=== PATIENT | male | born 1965 | race Caucasian/White ===

== ENCOUNTER 2025-03-02 08:26 | Outpatient (CLI) | payer OTHER, SELFPAY | END 2025-03-02 08:27 | disposition home or self-care (01) | PROVIDERS: Visit Provider Family Medicine | DX: R06.09 Other forms of dyspnea (principal); R07.89 Other chest pain | CPT/HCPCS: A0425; A0427 ==

== ENCOUNTER 2025-03-02 09:03 | Emergency (ER) | payer OTHER, SELFPAY ==
[2025-03-02 09:07] VITALS: BP 97/63; PULSE 73; RESP 24; TEMP 36.5; O2SAT 100; BMI 22.3
--- NOTE | 2025-03-02 09:10 | CRLHL7_ITS ---
For Patients: As a result of the Cures Act, medical imaging exams and procedure reports are released immediately into your electronic medical record. You may view this report before your referring provider. If you have questions, please contact your health care provider. INDICATION: Chest pain, not otherwise described. COMPARISON: Prior studies, the most recent dated 12/05/2018. TECHNIQUE: Single AP view of the chest. FINDINGS: Medical Devices: None. Lung Volumes: Adequate inspiration. No significant atelectasis. Lungs: Clear lungs. Pleura and Pleural spaces: No significant pleural effusion. No pneumothorax. Mediastinum: Normal cardiomediastinal silhouette. Bony Thorax and Soft Tissues: No significant incidental findings. IMPRESSION: No findings to explain the clinical history. Dictated by North Padilla MD @ 03/02/2025 9:46:07 AM (Electronically Signed)
--- NOTE | 2025-03-02 09:13 | ED.GENADULT ---
HPI - General Adult General Chief complaint: Shortness of Breath/Dyspnea Stated complaint: chest pain, shortness of breath Time Seen by Provider: 03/02/25 09:05 History of Present Illness HPI narrative: [age] year white male was out riding about 7 miles on his bike this morning and got short of breath and had some mild chest discomfort. He felt like he was dizzy, ambulance was called. His most complaint was shortness of breath. He reports he has been under good amount of stress lately as well. He has had no history of heart disease although he has a calcium coronary score in the 20s by his report. He has had no lung disease. No history of bleeding or clotting problems no history of cardiac disease, he is on a statin. Does report some stress recently, does report fluid intake but maybe not enough. He has had no fever, chills, cough, chest pain on a regular basis. He typically rides bike regularly. He denies chest pain now, still feels like he is gasping a little bit for breath. This seems to come and go he is able to talk in full and unlabored sentences. Related Data Home Medications ?Medication ?Instructions ?Recorded ?Confirmed azelastine 137 mcg (0.1 %) nasal intranasal 07/11/23 07/11/23 spray cyclobenzaprine 5 mg tablet 5 mg PO 3XD PRN 07/11/23 07/11/23 fluticasone propionate 50 intranasal 07/11/23 07/11/23 mcg/actuation nasal spray,suspension hydroxyzine HCl 25 mg tablet 25 mg PO BID 07/11/23 07/11/23 mirtazapine 15 mg tablet 15 mg PO QPM 07/11/23 03/02/25 rosuvastatin 5 mg tablet 5 mg PO DAILY 07/11/23 03/02/25 Allergies Allergy/AdvReac Type Severity Reaction Status Date / Time oxycodone Allergy Unknown Verified 07/11/23 14:17 Review of Systems Status of ROS: Reports: 6 or more systems reviewed and unremarkable except as noted in History and below Exam Narrative: Exam Narrative: Objective: Vital signs look within normal limits Alert orient x3 Mildly pale and dry mucous membranes in the mouth Low no facial asymmetry Neck is supple Chest clear Heart rhythm regular heart murmur No palpable chest wall pain Abdomen benign soft Extremities are no edema neurologic nonfocal. Patient has pants on and they are drenched in wet material, either sweat or water. Const: Vital Signs, click to edit/add: Vital Signs - 24 hr 03/02/25 09:07 Temperature 97.7 F Pulse Rate [Pulse Oximeter] 73 Respiratory Rate 24 Blood Pressure [Le ft Upper Arm] 97/63 Pulse Oximetry 100 Oxygen Delivery Me thod Room Air Course Vital Signs Vital signs: Initial Vital Signs Temperature 97.7 F 03/02/25 09:07 Temperature Source Temporal Artery Scan 03/02/25 09:07 Pulse Rate 73 03/02/25 09:07 Respiratory Rate 24 03/02/25 09:07 Blood Pressure 97/63 03/02/25 09:07 Blood Pressure Mean 74 03/02/25 09:07 Blood Pressure Position Supine 03/02/25 09:07 Pulse Oximetry 100 03/02/25 09:07 Oxygen Delivery Method Room Air 03/02/25 09:07 Vital Signs Temperature 97.7 F 03/02/25 09:07 Pulse Rate 73 03/02/25 09:07 Respiratory Rate 24 03/02/25 09:07 Blood Pressure 97/63 03/02/25 09:07 Pulse Oximetry 100 03/02/25 09:07 Oxygen Delivery Method Room Air 03/02/25 09:07 Temperature 97.7 F 03/02/25 09:07 Pulse Rate 73 03/02/25 09:07 Respiratory Rate 24 03/02/25 09:07 Blood Pressure 97/63 03/02/25 09:07 Pulse Oximetry 100 03/02/25 09:07 Oxygen Delivery Method Room Air 03/02/25 09:07 Medications Administered Medications: Discontinued Medications Generic Name Dose Route Start Last Admin Trade Name Freq PRN Reason Stop Dose Admin Aspirin 324 mg 03/02/25 09:09 03/02/25 09:46 Aspirin 81 Mg Tab.Chew PO 03/02/25 09:10 Not Given ONCE ONE Sodium Chloride 1,000 mls @ 6,000 mls/hr 03/02/25 09:15 03/02/25 10:23 0.9 % Sodium Chloride 1000 Ml IV 03/02/25 09:24 Infused .Q10M KAYLIN Infusion Sodium Chloride 500 mls @ 500 mls/hr 03/02/25 10:06 03/02/25 11:20 0.9 % Sodium Chloride 500 Ml IV 03/02/25 11:05 Infused .Q1H ONE Infusion Lorazepam 1 mg 03/02/25 09:25 03/02/25 09:34 Lorazepam 2 Mg/Ml Inj IVP 03/02/25 09:26 1 mg ONCE ONE Administration Medical Decision Making MDM Narrative Medical decision making narrative: [age] year white male out for a bike ride on a very hot day, with feelings of shortness of breath mild chest discomfort. He feels her dry. I suspect he has got an element of heat exhaustion and dehydration. Will rule out coronary disease, check his labs check a chest x-ray to rule out intrapulmonary pathology. Will check a troponin, put him on a threat monitoring analyst and oximeter. Given aspirin, give a L saline. Disposition pending findings and his clinical response. Addendum 11:40 a.m.: The patient's chest x-ray by my read is unremarkable. His EKG shows normal sinus rhythm no acute ST T wave changes, his troponin x2 at least 90 minutes apart is negative. His white count is normal, hemoglobin 13.6 and normal. ER profile shows normal potassium sodium. His lactate was elevated but I think it was from dehydration. I do not believe he constitutes sepsis. He simply was dry and has gotten a L and half of saline. Re-evaluation shows his color to be better he is hemodynamics are good he has had no arrhythmia. Amylase is borderline elevated 112. Recommend continue his home medications, rest, light activity, fluids regularly today, stay out of the heat today, recheck with regular doctor as needed to discuss further management. At this point I suspect he had a dehydration episode or heat exhaustion episode and has feels better now will long to go home and again followed up mention restrictions. Lab Data Labs: Lab Results 03/02/25 03/02/25 Range/Units 09: 11:24 WBC 4.40 L (4.50-11.00) K/uL RBC 4.39 (4.30-5.90) m/uL Hgb 13.6 (13.5-17.5) gm/dL Hct 40.2 (37.0-53.0) % MCV 92 (80-100) fL MCH 31 (26-34) pg MCHC 34 (32-36) gm/dL RDW Coeff of Sd 11.7 (11.5-15.5) % Plt Count 177 (140-440) K/uL Neut % (Auto) 68.9 (42.0-72.0) % Lymph % (Auto) 17.3 L (20-44) % Gentry % (Auto) 12.3 H (0.0-11.0) % Eos % (Auto) 1.1 (0.0-7.0) % Baso % (Auto) 0.2 (0.0-3.0) % Neut # (Auto) 3.00 (1.7-7.0) K/uL Lymph # (Auto) 0.80 L (0.90-2.90) K/uL Gentry # (Auto) 0.50 (0.00-0.90) K/UL Eos # (Auto) 0.00 (0.00-0.50) K/uL Baso # (Auto) 0.00 (0.00-0.30) K/uL Abs Immat Gran (auto) 0.00 (0.00-0.30) K/uL Imm/Tot Granulo (auto) 0.2 % D-Dimer Quant (PE/DVT) < 0.27 (0.00-0.50) ug/ml Sodium 136 (135-149) mmol/L Potassium 4.0 (3.6-5.1) mmol/L Chloride 105 (96-114) mmol/L Carbon Dioxide 21 (20-32) mmol/L Anion Gap 10 (7-15) mEq/L BUN 17 (7-30) mg/dL Creatinine 0.9 (0.5-1.5) mg/dL Estimated Creat Clear 59.91 Estimated GFR 97 ml/min Glucose 76 (60-115) mg/dL Lactate 3.9 H (0.5-1.9) mmol/L Calcium 9.0 (8.4-10.6) mg/dL Total Bilirubin 1.0 (0.1-1.5) mg/dL Direct Bilirubin 0.0 (0.0-0.5) mg/dL AST 39 H (12-35) U/L ALT 27 (4-50) U/L Alkaline Phosphatase 41 (40-150) U/L C-Reactive Protein < 0.5 L (0.5-1.0) mg/dL NT-Pro-B Natriuret Pep 83 (See Note) pg/mL Total Protein 6.6 (6.0-8.3) g/dL Albumin 4.1 (3.3-5.0) g/dL Amylase 112 H (18-89) U/L POC Troponin I 0.00 L 0.01 (0.01-0.04) ng/ml Discharge Plan Discharge Clinical Impression: Shortness of breath, Dehydration, Heat exhaustion Patient Disposition: Home w/ Parent or Adult Condition: Improved Additional Instructions: Light activity for the next few days, recheck with regular doctor next 3-5 days before your resume exercise or activity of any exertional nature, continue home medications, drink lots of fluids at least 6 glasses of water a day, recommend staying on this on for the next couple of days. Return as needed. Activity Level: Light activity Discharge Diet: Regular Prescriptions: No Action rosuvastatin 5 mg tablet 5 mg PO DAILY mirtazapine 15 mg tablet 15 mg PO QPM hydroxyzine HCl 25 mg tablet 25 mg PO BID fluticasone propionate 50 mcg/actuation spray,suspension intranasal Patient Comments: [NO ORIGINAL SIG] azelastine 137 mcg (0.1 %) aerosol,spray intranasal Patient Comments: [NO ORIGINAL SIG] cyclobenzaprine 5 mg tablet 5 mg PO 3XD PRN Stand Alone Forms: AOT Bedding Super Holdingsealth Info Instructions
--- OUTSIDE RECORDS SUMMARY | 2025-03-02 09:28 | XMS_ITS | Encounter Summary ---
Author Organization [facility] Address [address] [place] [address] Care Team Providers Care Food Checkers And Cashiers Supervisor Name Role Phone Andrew Fry PA-C Primary Care Provider Encounter Details Date Type Department Care Team (Late Contact Info) Description 12/20/2017 Consent for Procedure/Treatme nt [facility] Department INFORMED CONSENT RECORD Social History Tobacco Use Types Packs/Day Years Used Date Smoking Tobacco: Never Smokeless Tobacco: Never Alcohol Use Standard Drinks/Week Comments Yes 0 (1 standard drink = 0.6 oz pur e alcohol) rare Sex and Gender Information Value Date Recorded Sex Assigned at Not on file Legal Sex Male 4:44 AM CDT Gender Identity Not on file Sexual Orientation Not on file 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 Not on file Not on file [employer] Not on file Not 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 Not on file Not on file Not on marissa e documented as of this encounter Plan of Treatment Upcoming Encounters Date Type Department Care Team (Late Contact Info) Description 06/25/2025 12:00 PM SERVICING MANAGER Appointment [facility] Dental [facility] [address] [place] [address] Lizzy Alonzo, [facility] [address] [place] [address] documented as of this encounter Visit Diagnoses Not on filedocumented in this encounter Care Teams Food Checkers And Cashiers Supervisor Relationship Specialty Start Date End Date Andrew Fry PA-C [address] [place], [place] [phone] PCP - General Physician Suction Worker 08/09/18 documented as of this encounter
--- OUTSIDE RECORDS SUMMARY | 2025-03-02 09:28 | XMS_ITS | Encounter Summary ---
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 Not on file Not on marissa e documented as of this encounter Plan of Treatment Upcoming Encounters Date Type Department Care Team (Late Contact Info) Description 06/25/2025 12:00 PM MELTER SUPERVISOR OXYGEN FURNACE Appointment [facility] Dental [facility] [address] [place] [address] Lizzy Alonzo, [facility] [address] [place] [address] documented as of this encounter Visit Diagnoses Not on filedocumented in this encounter Care Teams Flight Deck Officer Relationship Specialty Start Date End Date Andrew Fry PA-C [address] [place], [place] [phone] PCP - General Physician Farm Agent 08/09/18 documented as of this encounter
--- OUTSIDE RECORDS SUMMARY | 2025-03-02 09:28 | XMS_ITS | Encounter Summary ---
Author Organization [employer] Address [address] [place] [address] Care Team Providers Care It Infrastructure Manager Name Role Phone Andrew Fry PA-C Primary Care Provider Encounter Details Date Type Department Care Team (Late st Contact Info) Description 06/19/2018 [facility] 401 [facility] 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 Not on file Not on file [employer] [place] [employer] Not on file Not on file Not on f ile owns [employer] Not on file Not on file Not on marissa e documented as of this encounter Plan of Treatment Upcoming Encounters Date Type Department Care Team (Late st Contact Info) Description 06/25/2025 12:00 PM ELEMENTARY SCHOOL TEACHER Appointment [facility] Dental [facility] [address] [place] [address] Lizzy Alonzo, [facility] [address] [place], [place] [phone] documented as of this encounter Visit Diagnoses Not on filedocumented in this encounter Care Teams It Infrastructure Manager Relationship Specialty Start Date End Date Andrew Fry PA-C [address] [place], [place] [phone] PCP - General Physician Circus Trainer 08/09/18 documented as of this encounter
--- OUTSIDE RECORDS SUMMARY | 2025-03-02 09:28 | XMS_ITS | Encounter Summary ---
Author Organization [employer] Address [address] [place] [address] Care Team Providers Care Disabilities Services Officer Name Role Phone Andrew Fry PA-C Primary Care Provider Encounter Details Date Type Department Care Team (Late st Contact Info) Description 01/06/2015 [facility] 435 [facility] 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 [address] [place], [place] [phone] documented as of this encounter Visit Diagnoses Not on filedocumented in this encounter Care Teams Disabilities Services Officer Relationship Specialty Start Date End Date Andrew Fry PA-C [address] [place], [place] [phone] PCP - General Physician Coil Maker 08/09/18 documented as of this encounter
--- OUTSIDE RECORDS SUMMARY | 2025-03-02 09:28 | XMS_ITS | Encounter Summary ---
Author Organization [employer] Address [address] [place] [address] Care Team Providers Care Information Technology Security Manager Name Role Phone Andrew Fry PA-C Primary Care Provider Encounter Details Date Type Department Care Team (Late st Contact Info) Description 09/07/2015 [facility] 401 Allergy Clinic 401 [facility] 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 on file [employer] Not on file Not on file Not on f ile owns [employer] Not on file Not on file Not on marissa e documented as of this encounter Plan of Treatment Upcoming Encounters Date Type Department Care Team (Late st Contact Info) Description 06/25/2025 12:00 PM COMPUTER FIELD TECHNICIAN Appointment [facility] Dental [facility] [address] [place] [address] Lizzy Alonzo, [facility] [address] [place], [place] [phone] documented as of this encounter Visit Diagnoses Not on filedocumented in this encounter Care Teams Information Technology Security Manager Relationship Specialty Start Date End Date Andrew Fry PA-C [address] [place], [place] [phone] PCP - General Physician Utilities And Maintenance Supervisor 08/09/18 documented as of this encounter
--- OUTSIDE RECORDS SUMMARY | 2025-03-02 09:28 | XMS_ITS | Encounter Summary ---
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 [address] [place], [place] [phone] documented as of this encounter Visit Diagnoses Not on filedocumented in this encounter Care Teams Bacon Slicer Relationship Specialty Start Date End Date Andrew Fry PA-C [address] [place], [place] [phone] PCP - General Physician Guard Supervisor 08/09/18 documented as of this encounter
--- OUTSIDE RECORDS SUMMARY | 2025-03-02 09:28 | XMS_ITS | Encounter Summary ---
Author Organization [employer] Address [address] [place] [address] Care Team Providers Care Quality Process Engineer Name Role Phone Andrew Fry PA-C Primary Care Provider [phone] Encounter Details Date Type Department Care Team (Late st Contact Info) Description 07/17/2019 [facility] 401 Allergy Clinic 401 [facility] 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 Not on file Not on fi le documented as of this encounter Plan of Treatment Upcoming Encounters Date Type Department Care Team (Late st Contact Info) Description 06/25/2025 12:00 PM RUG SIZER Appointment [facility] [place] [address] [place] [phone] Lizzy Alonzo, [facility] [address] [place], [place] [phone] documented as of this encounter Visit Diagnoses Not on filedocumented in this encounter Care Teams Quality Process Engineer Relationship Specialty Start Date End Date Andrew Fry PA-C [address] [place], [place] [phone] PCP - General Physician Pigment Furnace Tender 08/09/18 documented as of this encounter
--- OUTSIDE RECORDS SUMMARY | 2025-03-02 09:28 | XMS_ITS | Encounter Summary ---
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 [address] [place] [address] Lizzy Alonzo, [facility] [address] [place] [address] documented as of this encounter Visit Diagnoses Not on filedocumented in this encounter Care Teams Shellfish Harvester Relationship Specialty Start Date End Date Andrew Fry PA-C [address] [place], [place] [phone] PCP - General Physician Event Sales Assistant 08/09/18 documented as of this encounter
--- OUTSIDE RECORDS SUMMARY | 2025-03-02 09:28 | XMS_ITS | Encounter Summary ---
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 [address] [place], [place] [phone] documented as of this encounter Visit Diagnoses Diagnosis Encounter for long-term (current) use of medications- Primary Encounter for long-term (current) use of other medications documented in this encounter Care Teams Anthropology Faculty Member Relationship Specialty Start Date End Date Andrew Fry PA-C [address] [place], [place] [phone] PCP - General Physician Terrazzo Roller 08/09/18 documented as of this encounter
--- OUTSIDE RECORDS SUMMARY | 2025-03-02 09:28 | XMS_ITS | Encounter Summary ---
Author Organization [employer] Address [address] [place] [address] Care Team Providers Care Tar Distillation Supervisor Name Role Phone Andrew Fry PA-C Primary Care Provider Encounter Details Date Type Department Care Team (Late st Contact Info) Description 06/27/2017 [facility] 401 Allergy Clinic 401 [facility] 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 on file [employer] Not on file Not on file Not on f ile owns [employer] Not on file Not on file Not on marissa e documented as of this encounter Plan of Treatment Upcoming Encounters Date Type Department Care Team (Late st Contact Info) Description 06/25/2025 12:00 PM MID LEVEL PROJECT MANAGER Appointment [facility] Dental [facility] [address] [place] [address] Lizzy Alonzo, [facility] [address] [place], [place] [phone] documented as of this encounter Visit Diagnoses Not on filedocumented in this encounter Care Teams Tar Distillation Supervisor Relationship Specialty Start Date End Date Andrew Fry PA-C [address] [place], [place] [phone] PCP - General Physician Quality Assurance Monitor Body 08/09/18 documented as of this encounter
--- OUTSIDE RECORDS SUMMARY | 2025-03-02 09:28 | XMS_ITS | Patient Health Record ---
Author Organization [facility] Address [address] [facility] [place] [address] Care Team Providers Care Catalyst Operator Chief Name Role Phone COOPER LIN Unavailable [phone] Allergies Allergen (clinical drug ingredient) Drug/Non Drug Allergy documented on EMR Reaction Allergy Type Onset Date Status Pollen pollen (uncoded) Unknown Allergy Act deshaun acetaminophen / oxycodone Percocet Unknown Drug Allergy Active Reason For Referral No Information Medications Medication SIG (Take, Route, Frequency, Duration) Notes Start Date End Date Status Azelastine HCl 0.1 % 1 puff in each nost ril Nasally Twice a day Active Fluticasone Propionate 50 MCG/ACT 1 spray in each nostril Nasally Once a day Active Mary Active Acyclovir 200 mg 1 capsule Orally as needed Active Valium 10 mg 1 tablet Orally one hour prior to each procedure, must have lumber driver; Duration: 2 days Not-Taking HYDROcodone-Acetaminophen 5-325 MG 1 tablet as needed for moderate pain Orally 1 hour prior to procedure(s) and every 6 hrs; Duration: 0 - as needed Not-Taking Doxycycline Monohydrate 100 MG 1 capsule Orally every 12 hrs on day of procedures; Duration: 2 days Not-Taking Percocet 5-325 MG 1 tablet as needed f or severe pain Orally every 6 hrs; Duration: 0 - as needed 10/13/2017 Not-Taking Social History Tobacco Use: Social History Observation Description Date Details (start date - stop date) Never Smoker NA - NA Tobacco Use/Smoking Question Answer Notes Are you a nonsmoker Alcohol Screen (Audit-C) Question Answer Notes Did you have a drink contain ing alcohol in the past year? Yes How often did you have a dri nk containing alcohol in the past year? Monthly or less (1 point) How many drinks did you have on a typical day when you were drinking in the past year? 1 or 2 drinks (0 point) Points 1 Interpretation Negative Problems Problem Type SNOMED Code ICD Code Onset Dates Problem Status W/U Status Risk Notes Problem Osteoarthritis of knee (643536215) Primary osteoarthritis of right knee (M17.11) Active confirmed Problem Osteoarthritis of knee (415477394) Primary osteoarthritis of left knee (M17.12) Active confirmed Problem Degeneration of cervical intervertebral disc (84504276) Degenerative cervical disc (M50.30) Active confirmed Plan Of Treatment No Information Insurance Providers Payer Name Payer Address Payer Phone Subscriber Number Group Number Insured Name Patient Relationship to Insured Coverage Start Date Coverage End Date [facility] [address] [place], [place] [id number] Balaji Mas Self - patient is the insured Medical (General) History Surgical History Surgery Date(Month/Year) left shoulder decompression right shoulder decompression- slap tear left knee meniscal clean up right knee meniscal clean up 2014 sinus surgery Hospitalization History Reason Date(Month/Year) see surgical history
--- OUTSIDE RECORDS SUMMARY | 2025-03-02 09:28 | XMS_ITS | Clinical Summary ---
Author Organization [facility] Address [address] [place] [address] Care Team Providers Care Supervisor Heading Name Role Phone Pcp, No Primary Care Provider Unavailabl e Allergies Active Allergy Reactions Criticality Noted Date Comments Beta-Blockers (Beta-Adrenergic Blocking Agts) *Unknown 03/11/2008 Patient is on allergy injections, Beta Blockers contraindicated. If medically necessary, it is OK to prescribe a Beta Leanne, but the allergy injections will need to be discontinued. Dust Mites Runny Nose,Itching 08/27/2015 Oxycodone Stomach Upset 06/14/2002 Pollen Extracts Runny Nose,Itching 08/27/2015 Medications melatonin 1 mg Take 1 tablet by mouth at bedtime. 0 6 Active fexofenadine (HAMMAD) 180 mg tablet Take 1 Tablet by mouth once daily. 0 Active multivitamin (MVI) tablet Take 1 gum by mouth. Active ascorbic acid, vitamin C, 500 mg cap two times daily. Active cyclobenzaprine (FLEXERIL) 5 mg tablet Take 5 mg by mouth 3 times daily if needed. 2 Active Cholecalciferol, Vitamin D3, (Vitamin D-3) 400 unit capsule Take by mouth once daily. Active medication order composer Super Beta Prostate Active hydrOXYzine HCL (ATARAX) 25 mg tabletIndication s:LEAH (generalized anxiety disorder) Take 1/2-1 tablet (12.5-25 mg) twice daily as needed for anxiety. 60 Tablet 3 4 Active rosuvastatin (CRESTOR) 5 mg tabletIndication s:Elevated coronary artery calcium score TAKE 1 TABLET (5 MG) BY MOUTH AT BEDTIME. 90 Tablet 2 4 Active azelastine 137 mcg/actuation nasal sprayIndications :Allergic rhinitis, unspecified seasonality, unspecified trigger Inhale 1 [place] into affected nostril(s) two times daily. 90 mL 3 5 Active fluticasone (50 mcg per actuation) nasal solution (FLONASE)Indicat ions:Allergic rhinitis, unspecified seasonality, unspecified trigger Inhale 2 Sprays in both nostrils once daily. 48 g 3 5 Active olopatadine (PatanoL) 0.1 % ophthalmic solutionIndicati ons:Allergic conjunctivitis, unspecified laterality Place 1 Drop into both eyes two times daily. PRN 5 mL 6 5 Active busPIRone 15 mg tabletIndication s:LEAH (generalized anxiety disorder) Take 1 Tablet (15 mg) by mouth two times daily. 180 Tablet 1 5 Active mirtazapine 15 mg tabletIndication s:LEAH (generalized anxiety disorder) Take 1.5 Tablets (22.5 mg) by mouth at bedtime. 135 Tablet 1 5 Active acyclovir (ZOVIRAX) 400 mg tablet Take 1 Tablet by mouth two times daily. 5 Active levalbuterol (XOPENEX HFA) 45 mcg/actuation inhalerIndicatio ns:Exertional dyspnea Inhale 1-2 Puffs by mouth every 4 hours while awake. 15 g 5 Active albuterol HFA (PRO-AIR; VENTOLIN; PROVENTIL) 90 mcg/actuation inhaler Inhale 2 Puffs by mouth every 4 hours if needed. 1 02/29/20 25 Discontinu ed(Reorder (E-cancel not sent)) Active Problems Problem Noted Date Diagnosed Date Depression 10/08/2024 Primary osteoarthritis of right knee 07/18/2023 Primary osteoarthritis of left knee 07/18/2023 History of arthroscopy of right knee 07/18/2023 Genital herpes 04/05/2023 Overview (04/05/2023): Epic Asthma 04/05/2023 Allergic rhinitis 04/05/2023 Overview (04/05/2023): Has had surgery for sinuses. Chronic pain of both knees 04/05/2023 Overview (04/05/2023): Had bilateral meniscus surgeries. Has had PRP to the right knee. Heterozygous factor V Leiden mutation 04/05/2023 Obsessive-compulsive disorder 03/22/2023 LEAH (generalized anxiety disorder) 03/22/2023 s/p left shoulder arthroscop ic subacromial decompression, AC joint resection, debridement of partial rotator cuff tear, DOS: 11.26.1999 - Meliton Herr MD 12/23/2022 Right shoulder s/p arthrosco pic RC-subscapularis repair, revision SAD, AC resection, ext debridement, open subpec biceps tenodesis-07.12. by Compa Herr MD 07/12/2022 Degenerative joint disease of right acromioclavi cular joint 11/19/2021 Coracoid impingement of right shoulder History of right shoulder ar throscopic subacromial decompression, SLAP repair, biceps tenodesis in 199611/19/2021 Recurrent impingement syndrome of right shoulder 08/13/2021 Nontraumatic tear of right rotator cuff 07/28/20 21 Tendinopathy of right biceps tendon 07/28/2021 Scapular dyskinesis 07/28/2021 Degeneration of intervertebral disc of cervical region 11/01/2017 Other chronic allergic conjunctivitis 08/14/2012 Allergic rhinitis due to dust mite 2011 Overview (04/05/2023): Vocal cord dysfunction 08/11/2008 Insomnia 07/09/2006 Migraine 04/24/2006 Overview (04/05/2023): lst 1987-4 per year/Immitrex Resolved Problems Problem Noted Date Diagnosed Date Resolved Date History of bilateral subacro mial decompression, AC resection in by Dr. Herr 07/28/2021 11/19/2021 Encounters Date Type Department Care Team Description 02/28/2025 1:00 PM CDT Telemedicine [facility] [address] [place] [address] Balaji Potter PsyD, LP Telehealth; Psychotherapy 02/28/2025 10:35 AM CDT Office Visit [facility] [address] [place] [address] Ricarda Moyer DO Breathing Problem (Went up a steep incline and noted was SOB and felt like HR was fast x2 weeks ago ) 02/28/2025 Travel 02/06/2025 9:00 AM CDT Office Visit [facility] [address] [place] [address] Jessica Bhatti PA Bite 02/06/2025 8:15 AM CDT Nurse/Clinic Staff Only [facility] [address] [place] [address] Immunization/Injecti on (ALLERGY INJECTIONS ) 02/06/2025 Travel 01/24/2025 1:45 PM CDT Telemedicine [facility] [id number] [place] [address] Balaji Potter PsyD, LP Failed Appointment 01/24/2025 Telephone [facility] [id number] [place] [address] Balaji Potter PsyD, LP Appointment 01/21/2025 2:45 PM CDT Office Visit [facility] [address] [address] Shamika Leyva DO Derm Problem 01/21/2025 Travel 01/15/2025 11:30 AM CDT Office Visit [facility] [address] [place] [address] Shannon Wilson MD Throat Problem (Throat pain off and on for 1 week. has some white spots on the back of the throat. ); Follow Up (seen days ago - negative strep ) 01/15/2025 Travel 01/13/2025 12:05 PM CDT Office Visit [facility] [address] [place] [address] Michell Nelson MD Pharyngitis (Sore throat x 1 week) 01/13/2025 Travel 01/10/2025 1:00 PM CDT Telemedicine [facility] [address] [place] [address] Balaji Potter PsyD, LP Psychotherapy; Telehealth; Trmt Plan 01/09/2025 8:00 AM CDT Nurse/Clinic Staff Only [facility] [address] [place] [address] Immunization/Injecti on (ALLERGY INJECTIONS ) 01/08/2025 11:45 AM CDT Office Visit [facility] [address] [place] [address] Blossom Navarro NP Follow Up; Medication Management 01/08/2025 Travel 12/26/2024 3:00 PM CDT Telemedicine [facility] [address] [place] [address] Balaji Potter PsyD, LUIS ENRIQUE Mental Health Intake; Telehealth 12/12/2024 8:00 AM CDT Nurse/Clinic Staff Only [facility] [address] [place] [address] Immunization/Injecti on (ALLERGY INJECTIONS ) 12/12/2024 Travel from Last 3 Months Immunizations Immunization Administration Dates Next Due COVID-19 VACCINE SPIKEVAX (M ODERNA 50MCG/0.5ML) 12YO+ PFS 05/23/2024 COVID-19 vaccine (Moderna 100mcg/0.5mL) PF, MDV 06/13/2021 COVID-19 vaccine (Moderna 50mcg/0.5mL) 12YO+ BIVALENT PF, MDV 05/10/2022 Hepatitis B (Adult) 06/22/2021,02/05/2021,2020 INFLUENZA, IIV3 PF (AGE >= 6 MO) 05/23/2024,04/07,08/06/2009 Influenza, IIV3 (Age >=3 years) 08/06/2009 Influenza, IIV4 05/06/2023,,06/05/2020,2018,07/05/2017 Influenza, IIV4 (=>6mos) MDV 06/05/2020,05/22/20 19 Influenza,CCIIV4 PRESERV FREE 05/10/2022 Pneumococcal Poly,23-Valent (Pneumovax) 08/06/2009 Td (Age >=7 Years) 08/27/2003,07/26/1994 Tdap 01/01/2021,10/26/2010 Zoster (Shingrix-RZV, recombinant) 03/03/2021, Family History Medical History Relation Name Comments Heart Disease Father double CABG Alcoholism Maternal Grandfather Liver cancer Mother Relation Name Status Comments Father Maternal Grandfather Mother Social History Tobacco Use Types Packs/Day Years Used Date Smoking Tobacco: Never Passive Smoke Exposure: Never Smokeless Tobacco: Never Tobacco Cessation:Counseling Given: Yes Alcohol Use Standard Drinks/Week Comments Yes 0 (1 standard drink = 0.6 oz pur e alcohol) Rare PHQ-2 Answer Date Recorded PHQ-2 TOTAL SCORE 0 01/08/2025 Social Connections Answer Date Recorded Do you often feel lonely or isolated from those around you? 0 06/27/2024 Financial Resource Strain Answer Date R ecorded Difficulty of Paying Living Expenses 3 06/27/2024 Difficulty of Paying Living Expenses Not on file 06/27/2024 Food Insecurity Answer Date Recorded Do you worry your food will run out before you are able to buy more? 1 06/27/2024 Transportation Needs Answer Date Record ed Does lack of transportation keep you from medica l appointments? 1 06/27/2024 Does lack of transportation keep you from work, meetings or getting things that you need? 1 06/27/2024 Housing Stability Answer Date Recorded What is your housing situation today? 1 06/27/2024 Utilities Answer Date Recorded Do you have trouble paying f or utilities (for example, heat, electricity, water, phone)? 1 06/27/2024 Sex and Gender Information Value Date Recorded Sex Assigned at Not on file Legal Sex Male 6:19 AM WELDING LEAD BURNER Gender Identity Not on file Sexual Orientation Not on file Obstetrics History Last Filed Vital Signs Vital Sign Reading Time Taken Comments Blood Pressure 92/56 02/28/2025 10:44 AM CDT Pulse 56 02/28/2025 10:44 AM CDT Temperature 36.6 C (97.8 F) 01/13/2025 12:22 PM CDT Respiratory Rate - - Oxygen Saturation 98% 02/28/2025 10:44 AM CDT Inhaled Oxygen Concentration - - Weight 55.5 kg (122 lb 4.8 oz) 02/28/2025 10:44 AM CDT Height 157.3 cm (5' 1.93) 06/27/2024 12:[address] Body Mass Index 22.42 06/27/2024 12:36 PM WELDING LEAD BURNER Plan of Treatment Upcoming Encounters Date Type Department Care Team (Late st Contact Info) Description 03/06/2025 8:15 AM CDT Nurse/Clinic Staff Only [facility] [address] [place] [address] 03/12/2025 8:00 AM CDT Office Visit [facility] [address] [place] [address] 03/13/2025 10:00 AM CDT Telemedicine [facility] [address] [place] [address] Balaji Potter PsyD, LUIS ENRIQUE [address] [place] [address] 04/02/2025 11:45 AM CDT Office Visit [facility] [address] [place] [address] Blossom Navarro NP [address] [place] [address] Health Maintenance Due Date Last Done Comments HIV for age 15-65 1978 Hepatitis C screening for ag e 18-79 1981 Pneumococcal series for age 50+ (2 of 2 - PCV) 08/06/2010 08/06/2009 RSV vaccine for adults or (1 - Risk 60-74 years 1-dose series) 2023 Influenza Vaccine (#1) 2025 , 05/06/2023, 05/10/2022, Additional history exists BMI (ht and wt on same day) for age 18+ 06/27/2025 06/27/2024, 04/29/2024, 04/05/2023, Additional history exists Depression screening for age 12+ 01/08/2026 01/08/2025, 11/25/2024, 10/10/2024, Additional history exists Lipids for age 45-75 06/27/2029 06/27/2024, 04/05/20 23 Colonoscopy through age 75 09/02/203009/02 (Verified in Care Everywhere or Patient Record) Tetanus booster 01/01/2031 01/01/2021, 10/06, 08/27/2003, Additional history exists Zoster (shingles) series for age 50+ Completed 03/03/2021, 01/01/2021 Hepatitis B series for 19+ Completed 06/22, 02/05/2021, 01/01/2021 COVID-19 vaccine series Completed 05/23/20 24, 05/06/2023, 05/10/2022, Additional history exists Procedures Procedure Name Priority Date/Time Associated Diagnosis Comments THROAT CULTURE COMPREHENSIVE Routine 01/15/2025 12:55 PM CDT Sore throat THROAT RAPID STREP ONLY CLINIC Routine 01/13/2025 12:30 PM CDT Sore throat STREP A PCR Routine 01/13/2025 12:30 PM CDT Sore throat LIPID PANEL W REFLEX MEASURED LDL Routine 06/27/2024 1:28 PM WELDING LEAD BURNER Annual physical exam from Last 3 Months or Most Recently Relevant to Health Maintenance Results * THROAT CULTURE COMPREHENSIVE (01/15/2025 12:55 PM CDT) CULTURE Usual fei 01/18/2025 1:19 PM CDT [facility] Throat SPECIMEN FROM THROAT / Unknown Non-Blood / Unknown 01/15/2025 12:55 PM CDT 01/15/2025 12:55 PM CDT Shannon Wilson MD MICROBIOLOGY Fi nal Result [facility] [address] [place] [address], [place] * STREP A PCR (01/13/2025 12:30 PM CDT) GROUP A STREP Negative 01/14/2025 5:48 AM CDT [facility] Throat SPECIMEN FROM THROAT / Unknown Non-Blood / Unknown 01/13/2025 12:30 PM CDT 01/13/2025 12:34 PM CDT Michell Nelson MD MICROBIOLOGY Final Result Performing Organization Address [facility]/ZIP Co de Phone Number [facility] [address] [place] [address], [place] * THROAT RAPID STREP ONLY CLINIC (01/13/2025 12:30 PM CDT) Pathologist [facility] THROAT RAPID STREP A ANTIGEN Negative 01/13/2025 12:43 PM CDT [facility] Throat SPECIMEN FROM THROAT / Unknown Non-Blood / Unknown 01/13/2025 12:30 PM CDT 01/13/2025 12:34 PM CDT Michell Nelson MD MICROBIOLOGY Final Result Performing Organization Address City/[facility]/ZIP Co de Phone Number [facility] [address] [place] [address], [place] * LIPID PANEL W REFLEX MEASURED LDL (06/27/2024 1:28 PM WELDING LEAD BURNER) CHOLESTEROL, TOTAL 146 <200 mg/dL [facility] HDL CHOLESTEROL 64 > OR = 40 mg/dL [facility] TRIGLYCERIDES 125 <150 mg/dL [facility] LDL-CHOLESTEROL 61 mg/dL (calc) [facility] Comment: Reference range: <100 Desirable range <100 mg/dL for primary prevention; <70 mg/dL for patients with CHD or diabetic patients with > or = 2 CHD risk factors. LDL-C is now calculated using the Ange calculation, which is a validated novel method providing better accuracy than the Friedewald equation in the estimation of LDL-C. Cam SS et al. ISAEL. 2013;310(19): 9890-1289 (http://education.[employer]/faq/ASW370) CHOL/HDLC RATIO 2.3 <5.0 (calc) [facility] NON HDL CHOLESTEROL 82 <130 mg/dL (calc) [facility] Comment: For patients with diabetes plus 1 major ASCVD risk factor, treating to a non-HDL-C goal of <100 mg/dL (LDL-C of <70 mg/dL) is considered a therapeutic option. Blood BLOOD SPECIMEN / Unknown 06/27/2024 1:28 PM WELDING LEAD BURNER 06/27/2024 1:30 PM WELDING LEAD BURNER us Ricarda Moyer DO CHEMISTRY Final Result [facility] [address] [place] [address], [facility] [address] [place] [address] from Last 3 Months or Most Recently Relevant to Health Maintenance Insurance [facility] [place] [id number] Care Teams Supervisor Heading Relationship Specialty Start Date End Date Pcp, No . PCP - General 01/08/25
--- OUTSIDE RECORDS SUMMARY | 2025-03-02 09:28 | XMS_ITS | Encounter Summary ---
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 Not on file Not on file Not on marissa e documented as of this encounter Plan of Treatment Upcoming Encounters Date Type Department Care Team (Late Contact Info) Description 06/25/2025 12:00 PM PEER EDUCATOR Appointment [facility] [address] [place] [address] Lizzy Alonzo, [facility] [address] [place], [place] [phone] documented as of this encounter Visit Diagnoses Not on filedocumented in this encounter Care Teams Assistant Laboratory Director Relationship Specialty Start Date End Date Andrew Fry PA-C [address] [place], [place] [phone] PCP - General Physician Icebox Worker 08/09/18 documented as of this encounter
--- OUTSIDE RECORDS SUMMARY | 2025-03-02 09:28 | XMS_ITS | Clinical Summary ---
Author Organization [facility] Address [address] [place] [address] Care Team Providers Care Director Global Development Name Role Phone Andrew Fry PA-C Primary Care Provider [phone] Source Comments You are receiving this document as you are listed as the primary care provider,follow-up provider, or the patient has been referred to you for consultation.This is in compliance with the Medicare and[facility] EHR Incentive Program,which states Providers who transition their patient to another setting of careor provider of care or refers their patient to another provider of care shouldprovide summary care record for each transition of care or referral. [facility] Allergies Active Allergy Reactions Criticality Noted Date Comments Beta Adrenergic Blockers 03/11/2008 Patient is on allergy injections, Beta Blockers contraindicated. If medically necessary, it is OK to prescribe a Beta Leanne, but the allergy injections will need to be discontinued. Oxycodone 06/14/2002 Medications * This document contains information received from the source organization and may not represent a complete record from that organization. Multiple Vitamins-Iron (MULTIVITAMIN/IRON OR) Take 1 Gum by mouth daily. Active Ascorbic Acid (VITAMIN C) 500 MG CAPS two times a day. Active Cholecalciferol (VITAMIN D3 GUMMIES ADULT OR) Active Melatonin (MELATONIN) 1 MG Take 1 Tablet (1 mg) by mouth. 08/27/19 16 Active Saw Woodland, Serenoa repens, (SAW PALMETTO CALVILLO OR) Active Fiber Adult Gummies 2 g CHEW 09/07/19 19 Active fexofenadine (HAMMAD) 180 MG tablet Take 1 Tablet by mouth daily. 90 Tablet 3 07/23/20 21 Active acyclovir (ZOVIRAX) 400 MG tablet TAKE 1 TABLET BY MOUTH TWO TIMES A DAY. 180 Tablet 1 09/15/19 23 Active cyclobenzaprine (FLEXERIL) 5 MG tabletIndications:Deg enerative joint disease of right acromioclavicular joint TAKE 1 TABLET (5 MG) BY MOUTH THREE TIMES A DAY NEEDED FOR MUSCLE SPASMS. 30 Tablet 02/22/20 23 Active ALBUterol sulfate HFA 108 (90 Base) MCG/ACT inhaler Inhale 2 Puffs every 4 hours as needed for Wheezing. 18 g 1 08/25/19 24 Active olopatadine 0.1 % eye drop solution Place 1 Drop into both eyes two times daily as needed for Allergies. 5 mL 3 08/25/19 24 Active FLUoxetine (PROZAC) 20 MG capsule Take by mouth. A ctive hydrOXYzine HCl (ATARAX) 25 MG tablet Take 0.5-1 Tablets (12.5-25 mg) by mouth two times daily as needed. Active mirtazapine (REMERON) 15 MG tablet Take 1 Tablet (15 mg) by mouth daily at bedtime. Active rosuvastatin (CRESTOR) 5 MG tablet Take 1 Tablet (5 mg) by mouth daily at bedtime. Active azelastine (ASTELIN) 0.1 % nasal solution ADMINISTER 2 SPRAYS IN EACH NOSTRIL TWICE DAILY 30 mL 2 08/20/19 25 Active fluticasone propionate (FLONASE) 50 MCG/ACT nasal solution PLACE 2 SPRAYS INTO BOTH NOSTRILS DAILY. 48 g 09/30/19 25 Active Active Problems Problem Noted Date Diagnosed Date Status post shoulder surgery 07/12/2022 Degenerative joint disease of right acromioclavi cular joint 11/19/2021 History of shoulder surgery 11/19/2021 Impingement syndrome of right shoulder 2 Nontraumatic tear of right rotator cuff 12/22/20 21 Scapular dyskinesis 07/28/2021 Tendinopathy of right biceps tendon 07/28/2021 Pain of cervical facet joint 11/30/2017 Facet arthritis of cervical region 11/30/2017 DDD (degenerative disc disease), cervical 2017 Allergic rhinitis due to dust mite 07/09/2015 Other chronic allergic conjunctivitis 08/14/2012 Allergic rhinitis due to pollen 2011 Overview (08/06/2015): Anxiety 09/30/2010 Vocal cord dysfunction 08/11/2008 Need for desensitization to allergens 03/07/2008 Overview (08/05/2021): Allergy Shot Care Plan for Balaji Mas Ordering Provider: Dr. Andrew Huntley Serum 1: Mite DF and Mite DP Date Shots Started: Start Dose: 0.1 mL of 1:100,000 - GREEN Date Maintenance Reached: Maintenance Dose: 0.1 mL of 1:100 - RED 08/05/21: Serum 2: Special Mix, Tree, Grass and Ragweed Date Shots Started: Start Dose: 0.1 mL of 1:100,000 - GREEN Date Maintenance Reached: Maintenance Dose: 0.3 mL of 1:100 - RED 08/05/21: Insomnia 07/09/2006 Migraine 04/24/2006 Overview (04/24/2006): lst 1987-4 per year/Immitrex Allergic rhinitis 01/11/2003 Overview (03/29/2017): Rhinitis Allergic NOS Asthma Genital herpes Overview (05/07/2015): Epic Resolved Problems Problem Noted Date Diagnosed Date Resolved Date Anxiety state 07/07/2006 06/24/2022 Overview (04/18/2018): Serzone-in late Therapy in late Epic Allergic rhinitis 08/14/2012 Overview (05/07/2015): Allergy Shot Care Plan for Balaji Mas Serum 1: Special Mix, [place] , Tree, Grass, Ragweed Maintenance Dose: 0.4ml of 10,000 PNU Comments: Cut back 3 steps with new extract and rebuild to 0.4 ml of 10,000 PNU as tolerated. Eden Espinoza, RN 09/09/2014 3:56 PM Epic Encounters Date Type Department Care Team Description 12/11/2024 8:50 AM CDT Office Visit [facility] [address] [address] Tiffany Ansari, [facility] Dental Exam (Pt 15 min late, bit a piece of bone instant pain but gone now) from Last 3 Months Immunizations Immunization Administration Dates Next Due Flu Vac (3+ yrs) 06/07/2012, 1,06/21/2010,2008,06/02/2008,05/31/2006,06/22/2005,1 09/18/2002 Fluzone Qiv Multidose Vial 0 .25 (6-35 Mos) 06/05/2020 H1n1 Miv Novartis 4+ Yr (Injected) 07/15/2009 HepB Adult (Engerix-B, 20+ y rs, 3 dose series) 06/22/2021,02/05/2021,01/01/2021 Influenza (Flucelvax), Prese rv Free QIV 05/10/2022 Influenza IIV4 (Quadrivalent ) 0.5mL ([id number]) 05/06/2023,05/22/2021,06/05/2020,2018,05/26/2018,07/05/2017,05/19/2015 Influenza Vaccine (3+years) ([facility]) 06/26/2007 Influenza, Unspecified Formulation 06/10/2014, Lidia COVID-19 Vaccine 11/12/2020 Moderna Bivalent 12+ 05/10/2022 Moderna Monovalent 12+ 06/13/2021 PPSV23 (Pneumovax) 08/06/2009 Pfizer COVID-19 12+ 05/06/2023 Td 08/27/2003,07/26/1994 Tdap 01/01/2021,10/26/2010 Zoster RZV (Shingrix) 03/03/2021,01/01/2021 Family History Medical History Relation Name Comments COPD Father Silverio Mas Cataract Father Silverio Mas Coronary Artery Disease Father Silverio Mas 5 0 [place], CAB Depression Father Silverio Mas Hearing Loss Father Silverio Mas Hypertension Father Silverio Mas Stroke Father Silverio Mas Bleeding Disorder Mother Lynn Robles Cancer, Other Mother Lynn Robles liver cancer -57 Depression Mother Lynn Robles Migraines Mother Lynn Robles Other Mother Lynn Robles migraines Hypertension Brother 1 Anxiety Brother 2 Depression Brother 3 Vishal Gaffneyjpnaresh Hypertension Brother 3 Vishal Landonpnaresh Alcohol/Drug Abuse Maternal Grandfather a lcoholic cirrhosis Hypertension Paternal Grandmother Karen Mas Anxiety Sister 3 Depression Sister 4 Anastacia A [place] ADHD Son 2 Cancer, Breast Negative Family History Cancer, Colon Negative Family History Relation Name Status Comments Father Silverio Mas Alive Mother Lynn Robles (Age 57) Brother 1 Alive Brother 2 Brother 3 Vishal Mas Daughter Alive Maternal Grandfather (Age 69) Maternal Grandmother (Age 89) Paternal Grandfather (Age 72) Pa tacosinson's Paternal Grandmother Karen Mas (Age 80) Sister 1 (Age 14) accident Sister 2 Alive Sister 3 Sister 4 Anastacia A [place] Son 1 Alive Son 2 Social History Tobacco Use Types Packs/Day Years Used Date Smoking Tobacco: Never Smokeless Tobacco: Never Tobacco Cessation:Counseling Given: Not Answered Alcohol Use Standard Drinks/Week Comments Yes 0 (1 standard drink = 0.6 oz pure alcohol) drink one drink a few times per year PHQ-2 Answer Date Recorded PHQ-2 Score 2 11/05/2021 Sex and Gender Information Value Date Recorded Sex Assigned at Not on file Legal Sex Male 4:44 AM CDT Gender Identity Not on file Sexual Orientation Not on file 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 Not on file Not on file [employer] Not on file Not on file Not on f ile owns [employer] Not on file Not on file Not on marissa 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 file Not on file Not on fi le Last Filed Vital Signs Vital Sign Reading Time Taken Comments Blood Pressure 97/53 08/25/2023 2:44 PM CONTROL SYSTEMS DEVELOPER Pulse 61 11/30/2023 8:17 AM CDT Temperature 36.7 C (98.1 F) 08/04/2020 3:21 PM CONTROL SYSTEMS DEVELOPER Respiratory Rate 16 06/24/2022 1:18 PM CONTROL SYSTEMS DEVELOPER Oxygen Saturation 97% 09/02/2020 2:30 PM CONTROL SYSTEMS DEVELOPER Inhaled Oxygen Concentration - - Weight 57 kg (125 lb 11.2 oz) 08/25/2023 2:44 PM CONTROL SYSTEMS DEVELOPER Height 157.5 cm (5' 2) 08/25/2023 2:44 PM CONTROL SYSTEMS DEVELOPER Body Mass Index 22.99 08/25/2023 2:44 PM CONTROL SYSTEMS DEVELOPER Plan of Treatment Upcoming Encounters Date Type Department Care Team (Late st Contact Info) Description 06/25/2025 12:00 PM CONTROL SYSTEMS DEVELOPER Appointment [facility] [place] [address] [place] [address] Lizzy Alonzo, [facility] [address] [place] [address] Health Maintenance Due Date Last Done Comments Pneumococcal Vaccine 50+ Yrs (2 of 2 - PCV) 08/06/2010 08/06/2009 Adult Preventive Visit 08/04/2021 0, 08/29/2018, 12/08/2015, Additional history exists PSA Screening Discussion 06/24/2023 022, 08/04/2020, 08/29/2018, Additional history exists Influenza Vaccine (#1) 2025 3, 05/10/2022, 05/22/2021, Additional history exists Cholesterol 08/04/2025 08/04/2020, 12/05, 09/30/2010, Additional history exists Colonoscopy 09/02/2030 09/02/2020, 07/07, 07/20/2011 DTaP/Tdap/Td Vaccine (3 - Tdap) 01/01/2031 01/01/2021, 10/26/2010, 08/27/2003, Additional history exists RSV Vaccine (1 - 1-dose 75+ series) 2038 HIV Screening (Preventive Services) Completed 12/21/2016 Hep C Screening (Preventive Services) Completed 12/21/2016 Zoster/Shingles Vaccine Completed 03/03/2021, 01/01 HepB Vaccine Completed 06/22/2021, 09/2020, 01/01/2021 COVID-19 Vaccine Completed 05/23/2024, , 05/10/2022, Additional history exists HepA Vaccine Aged Out No longer eligi ble based on patient's age to complete this topic Hib Vaccine Aged Out No longer eligi ble based on patient's age to complete this topic IPV (Polio) Vaccine Aged Out No longe r eligible based on patient's age to complete this topic MCV4 Vaccine Aged Out No longer eligi ble based on patient's age to complete this topic Meningococcal B Vaccine Aged Out No l onger eligible based on patient's age to complete this topic Procedures Procedure Name Priority Date/Time Associated Diagnosis Comments PROPHYLAXIS-ADULT RECALL Routine 12/11/2024 8:50 AM CDT Chronic periodontitis, localized, moderate PERIODIC ORAL EVALUATION Routine 12/11/2024 8:50 AM CDT Chronic periodontitis, localized, moderate BDSC-DIAAMIAL-BMOD Routine 12/11/2024 8: 50 AM CDT Chronic periodontitis, localized, moderate PROSTATIC SPECIFIC ANTIGEN(SCREEN) Routine 06/24/2022 2:02 PM CONTROL SYSTEMS DEVELOPER Screening for prostate cancer COLONOSCOPY Routine 09/02/2020 1:25 PM CONTROL SYSTEMS DEVELOPER Screen for colon cancer LIPID PANEL & DIRECT LDL (IF NEEDED) Routine 08/04/2020 4:15 PM CONTROL SYSTEMS DEVELOPER Screening for hyperlipidemia HIV 1/2 AG/AB 4TH GEN Routine 12/21/2016 3:51 PM CDT Screening for HIV (human immunodeficiency virus) HEPATITIS C ANTIBODY, WITH REFLEX (ANTI-HCV) Routine 12/21/2016 3:51 PM CDT Need for hepatitis C screening test from Last 3 Months or Most Recently Relevant to Health Maintenance Results * Prostatic Specific Antigen (Screen) (06/24/2022 2:02 PM CONTROL SYSTEMS DEVELOPER) Prostatic Specific Antigen 0.6 0.0 - 4.0 ng/mL 06/24/2022 7:25 PM CONTROL SYSTEMS DEVELOPER [facility] Blood Venipuncture / Unknown 06/24/2022 2:02 PM CONTROL SYSTEMS DEVELOPER 06/24/2022 2:02 PM CONTROL SYSTEMS DEVELOPER Narrative [facility] - 06/24/2022 7:25 PM CONTROL SYSTEMS DEVELOPER The Sun PSA Chemiluminescent immunoassay is used. Results obtained with different test methods or kits cannot be used interchangeably. us Andrew Fry PA-C LAB_1 Final Resul t [facility] [address] [phone] * COLONOSCOPY [[id number]] (09/02/2020 1:25 PM CONTROL SYSTEMS DEVELOPER) 09/02/2020 1:25 PM CONTROL SYSTEMS DEVELOPER Narrative [facility] ([facility]) - 09/02/2020 2:22 PM CONTROL SYSTEMS DEVELOPER Instrument Name: 176 Indications: Screening for colorectal malignant neoplasm Providers: Saw Severino MD, Latoya Baez LPN, Katina Winkler RN Referring MD: Andrew Fry Medicines: Midazolam 2 mg IV, Fentanyl 100 micrograms IV Complications: No immediate complications. Procedure: After I obtained informed consent, the scope was passed under direct vision. Prior to sedation, patient identity and procedure was reverified. Throughout the procedure, the patient's blood pressure, pulse, and oxygen saturations were monitored continuously. The PCF-H190L was introduced through the anus and advanced to the terminal ileum. The terminal ileum, the ileocecal valve and the appendiceal orifice were photographed. Findings: The terminal ileum appeared normal. The entire examined colon appeared normal. Moderate Sedation: Moderate (conscious) sedation was administered by the endoscopy nurse and supervised by the endoscopist. The following parameters were monitored: oxygen saturation, heart rate, blood pressure, respiratory rate, EKG, adequacy of pulmonary ventilation, and response to care. Total physician intraservice time was 17 minutes. Impression: - The examined portion of the ileum was normal. - The entire examined colon is normal. - No specimens collected. - Irritable bowel syndrome with visceral hyperalgesia. Recommendation: - Repeat colonoscopy in 10 years for screening purposes. Procedure Code(s): --- Professional --- 55485, Colonoscopy, flexible; diagnostic, including collection of specimen(s) by brushing or washing, when performed (separate procedure) G0500, Moderate sedation services provided by the same physician or other qualified health home care assistant performing a gastrointestinal endoscopic service that sedation supports, requiring the presence of an independent trained observer to assist in the monitoring of the patient's level of consciousness and physiological status; initial 15 minutes of intra-service time; patient age 5 years or older (additional time may be reported with 20734, as appropriate) Diagnosis Code(s): --- Professional --- K58.9, Irritable bowel syndrome without diarrhea Z12.11, Encounter for screening for malignant neoplasm of colon CPT copyright 2019 [employer]. All rights reserved. The codes documented in this report are preliminary and upon sourcer review may be revised to meet current compliance requirements. Attending Participation: Saw Severino MD 09/02/2020 2:22:09 PM This report has been signed electronically. Number of Addenda: 0 Note Initiated On: 09/02/2020 1:25 PM Procedure Note Saw Severino MD - 09/02/2020 Instrument Name: 176 Indications: Screening for colorectal malignant neoplasm Providers: Saw Severino MD, Latoya Baez LPN, Katina Winkler RN Referring MD: Andrew Fry Medicines: Midazolam 2 mg IV, Fentanyl 100 micrograms IV Complications: No immediate complications. Procedure: After I obtained informed consent, the scope was passed under direct vision. Prior to sedation, patient identity and procedure was reverified. Throughout the procedure, the patient's blood pressure, pulse, and oxygen saturations were monitored continuously. The PCF-H190L was introduced through the anus and advanced to the terminal ileum. The terminal ileum, the ileocecal valve and the appendiceal orifice were photographed. Findings: The terminal ileum appeared normal. The entire examined colon appeared normal. Moderate Sedation: Moderate (conscious) sedation was administered by the endoscopy nurse and supervised by the endoscopist. The following parameters were monitored: oxygen saturation, heart rate, blood pressure, respiratory rate, EKG, adequacy of pulmonary ventilation, and response to care. Total physician intraservice time was 17 minutes. Impression: - The examined portion of the ileum was normal. - The entire examined colon is normal. - No specimens collected. - Irritable bowel syndrome with visceralhyperalgesia. Recommendation: - Repeat colonoscopy in 10 years for screening purposes. Procedure Code(s): --- Professional --- 62068, Colonoscopy, flexible; diagnostic, including collection of specimen(s) by brushing or washing, when performed (separate procedure) G0500, Moderate sedation services provided by the same physician or other qualified health home care assistant performing a gastrointestinal endoscopic service that sedation supports, requiring the presence of an independent trained observer to assist in the monitoring of the patient's level of consciousness and physiological status; initial 15 minutes of intra-service time; patient age 5 years or older (additional time may be reported with 53637, as appropriate) Diagnosis Code(s): --- Professional --- K58.9, Irritable bowel syndrome without diarrhea Z12.11, Encounter for screening for malignant neoplasm of colon CPT copyright 2019 [employer]. All rights reserved. The codes documented in this report are preliminary and upon sourcer review may be revised to meet current compliance requirements. Attending Participation: Saw Severino MD 09/02/2020 2:22:09 PM This report has been signed electronically. Number of Addenda: 0 Note Initiated On: 09/02/2020 1:25 PM Saw Severino MD DIGESTIVE CARE Final Result [facility] ([facility] [place], [place] * Lipid Panel and Direct LDL(If Needed) (08/04/2020 4:15 PM CONTROL SYSTEMS DEVELOPER) Cholesterol 182 0 - 199 mg/dL 08/04/2020 6:33 PM CONTROL SYSTEMS DEVELOPER [facility] Triglyceride 48 <=149 mg/dL 08/04/2020 6:33 PM CONTROL SYSTEMS DEVELOPER [facility] HDL Cholesterol 57 >=40 mg/dL 08/04/2020 6:33 PM CONTROL SYSTEMS DEVELOPER [facility] LDL, Calculated 115 <130 mg/dL 08/04/2020 6:33 PM [facility] Non HDL Chol, Calculated 125 mg/dL 08/04/2020 6:33 PM CONTROL SYSTEMS DEVELOPER [facility] Cholesterol/HDL Ratio 3.2 08/04/2020 6:33 PM CONTROL SYSTEMS DEVELOPER [facility] Hours Fasting 18 08/04/2020 6:33 PM CONTROL SYSTEMS DEVELOPER [facility] Blood Venipuncture / Unknown 08/04/2020 4:15 PM CONTROL SYSTEMS DEVELOPER 08/04/2020 4:15 PM CONTROL SYSTEMS DEVELOPER us Andrew Fry PA-C LAB_1 Final Resul t Performing Organization Address [facility] de Phone Number [address] [address], [facility] [phone] [facility] [address] [place] [address], [facility] [phone] * HIV 1/2 Ag/Ab 4th Generation (12/21/2016 3:51 PM CDT) Pathologist [facility] HIV 1/2 AG/AB 4thGEN Negative (Non Reactive) [facility] Comment:HIV-1 p24 Ag and HIV -1/HIV-2 Ab not detected. 12/21/2016 3:51 PM CDT 12/21/2016 3:54 PM CDT Narrative [facility] - 12/21/2016 6:44 PM CDT Performed at [facility], [address] [place] [address] us Jorge Hopkins MD LAB_1 Final Result Performing Organization Address [facility] de Phone Number [facility] [phone] * Hepatitis C Antibody, with Reflex (12/21/2016 3:51 PM CDT) Anti-HCV Negative (Non Reactive) [facility] Comment: Antibodies to HCV not detected. Does not exclude the possibility of exposure to HCV. 12/21/2016 3:51 PM CDT 12/21/2016 3:54 PM CDT Narrative [facility] - 12/21/2016 6:39 PM CDT Performed at [facility], [address] [place] [address] Jorge Hopkins MD LAB_1 Final Result [facility] [phone] from Last 3 Months or Most Recently Relevant to Health Maintenance Insurance HP SELF INSURED HP SELF INSURED HP SELF INSURED HP COMM HP FAMILY DENTAL Advance Directives * No Code Status (Latest Code Status on File) Date Activated Date Inactivated Comments 09/05/2003 3:32 PM 09/05/2003 4:32 PM Care Teams Director Global Development Relationship Specialty Start Date End Date Andrew Fry PA-C [id number] [place] [id number] PCP - General Physician Ward Assistant 08/09/18
--- OUTSIDE RECORDS SUMMARY | 2025-03-02 09:28 | XMS_ITS | Encounter Summary ---
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 Not on file Not on file [employer] Not on file Not on file Not on f ile owns [employer] Not on file Not on file Not on marissa e documented as of this encounter Plan of Treatment Upcoming Encounters Date Type Department Care Team (Late Contact Info) Description 06/25/2025 12:00 PM POTLINE MONITOR Appointment [facility] Dental [address] [address] Lizzy Alonzo, [facility] [address] [place] [address] documented as of this encounter Visit Diagnoses Not on filedocumented in this encounter Care Teams Logistician Relationship Specialty Start Date End Date Andrew Fry PA-C [address] [place], [place] [phone] PCP - General Physician Material Controller 08/09/18 documented as of this encounter
--- OUTSIDE RECORDS SUMMARY | 2025-03-02 09:28 | XMS_ITS | Encounter Summary ---
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 on file [employer] Not on file Not on file Not on f ile owns [employer] Not on file Not on file Not on marissa e documented as of this encounter Plan of Treatment Upcoming Encounters Date Type Department Care Team (Late st Contact Info) Description 06/25/2025 12:00 PM DIVER PUMPER Appointment [facility] [address] [place] [phone] Lizzy Alonzo, [facility] [address] [place], [place] [phone] documented as of this encounter Visit Diagnoses Not on filedocumented in this encounter Care Teams Flake Drier Relationship Specialty Start Date End Date Andrew Fry PA-C [address] [place], [place] [phone] PCP - General Physician Plant Attendant 08/09/18 documented as of this encounter
--- OUTSIDE RECORDS SUMMARY | 2025-03-02 09:28 | XMS_ITS | Encounter Summary ---
Author Organization [employer] Address [address] [place] [address] Care Team Providers Care Loom Changeover Operator Name Role Phone Andrew Fry PA-C Primary Care Provider Encounter Details Date Type Department Care Team (Latest Contact Info) Description 07/09/2015 Consent for Procedure/Treatme nt [facility] [address] 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 [address] [place], [place] [phone] documented as of this encounter Visit Diagnoses Not on filedocumented in this encounter Care Teams Loom Changeover Operator Relationship Specialty Start Date End Date Andrew Fry PA-C [address] [place], [place] [phone] PCP - General Physician Conference Service Coordinator 08/09/18 documented as of this encounter
--- OUTSIDE RECORDS SUMMARY | 2025-03-02 09:28 | XMS_ITS | Encounter Summary ---
Author Organization [employer] Address [address] [place] [address] Care Team Providers Care Precision Instrument Maker And Repairer Name Role Phone Andrew Fry PA-C Primary Care Provider Encounter Details Date Type Department Care Team (Late st Contact Info) Description 09/12/2014 Consent for Procedure/Treatme [facility] [place] [address] 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 on file Not on file [employer] Not on file Not on file Not on f ile owns [employer] Not on file Not on file Not on marissa e documented as of this encounter Plan of Treatment Upcoming Encounters Date Type Department Care Team (Late st Contact Info) Description 06/25/2025 12:00 PM BLUE CRABBER [facility]ointment [facility] [place] [address] [place] [address] Lizzy Alonzo, [facility] [address] [place], [place] [phone] documented as of this encounter Visit Diagnoses Not on filedocumented in this encounter Care Teams Precision Instrument Maker And Repairer Relationship Specialty Start Date End Date Andrew Fry PA-C [address] [place] [address] PCP - General Physician Application Developer Manager 08/09/18 documented as of this encounter
--- OUTSIDE RECORDS SUMMARY | 2025-03-02 09:28 | XMS_ITS | Encounter Summary ---
Author Organization [employer] Address [address] [address] Care Team Providers Care Materials Assistant Name Role Phone Andrew Fry PA-C Primary Care Provider Encounter Details Date Type Department Care Team (Late st Contact Info) Description 10/15/2012 Flowsheet [place] [facility] [address] 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[employer] Not on file Not on file Not on marissa e documented as of this encounter [employer] * Andrew Huntley MD - 10/15/2012 12:00 AM CDT documented in this encounter Plan of Treatment Upcoming Encounters Date Type Department Care Team (Late st Contact Info) Description 06/25/2025 12:00 PM CENTER DIRECTOR Appointment [facility] [address] [place] [phone] [facility] [address] [place], [place] [phone] documented as of this encounter Visit Diagnoses Not on filedocumented in this encounter Care Teams Materials Assistant Relationship Specialty Start Date End Date Andrew Fry PA-C [address] [place], [place] [phone] PCP - General Physician Foil Wrapper 08/09/18 documented as of this encounter
--- OUTSIDE RECORDS SUMMARY | 2025-03-02 09:28 | XMS_ITS | Encounter Summary ---
Author Organization [employer] Address [address] [place] [address] Care Team Providers Care Tow Bar Driver Name Role Phone Andrew Fry PA-C Primary Care Provider Encounter Details Date Type Department Care Team (Late st Contact Info) Description 09/13/2011 Flowsheet [facility] [address] [facility] 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[employer] Not on file Not on file Not on marissa e documented as of this encounter [employer] * Andrew Huntley MD - 09/13/2011 12:00 AM CST LY SOCIOLOGIST documented in this encounter Plan of Treatment Upcoming Encounters Date Type Department Care Team (Late st Contact Info) Description 06/25/2025 12:00 PM FAMILY SOCIOLOGIST Appointment [facility] [address] [place] [address] [facility] [address] [place], [place] [phone] documented as of this encounter Visit Diagnoses Not on filedocumented in this encounter Care Teams Tow Bar Driver Relationship Specialty Start Date End Date Andrew Fry PA-C [address] [place], [place] [phone] PCP - General Physician Parquet Floor Layer'S Helper 08/09/18 documented as of this encounter
--- OUTSIDE RECORDS SUMMARY | 2025-03-02 09:28 | XMS_ITS | Encounter Summary ---
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 Not on file Not on marissa e documented as of this encounter Plan of Treatment Upcoming Encounters Date Type Department Care Team (Late Contact Info) Description 06/25/2025 12:00 PM PRESIDENT PRACTICING UROLOGIST Appointment [facility] [address] [place] [address] Lizzy Alonzo, [facility] [address] [place] [address] documented as of this encounter Visit Diagnoses Not on filedocumented in this encounter Care Teams Bus Escort Relationship Specialty Start Date End Date Andrew Fry PA-C [address] [place], [place] [phone] PCP - General Physician Line Technician 08/09/18 documented as of this encounter
--- OUTSIDE RECORDS SUMMARY | 2025-03-02 09:28 | XMS_ITS | Encounter Summary ---
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 Not on file Not on marissa e documented as of this encounter Plan of Treatment Upcoming Encounters Date Type Department Care Team (Late st Contact Info) Description 06/25/2025 12:00 PM SPOOLER OPERATOR AUTOMATIC Appointment [facility] [address] [place] [address] Lizzy Alonzo, [facility] [address] [place] [address] documented as of this encounter Visit Diagnoses Not on filedocumented in this encounter Care Teams Baseball Inspector Relationship Specialty Start Date End Date Andrew Fry PA-C [address] [address] [place], [place] [phone] PCP - General Physician Cleaner Window 08/09/18 documented as of this encounter
[2025-03-02 09:32] LABS: Lactate* 3.9 mmol/L (0.5-1.9)
[2025-03-02 09:33] LABS: Hematocrit 40.2 % (37.0-53.0); Hemoglobin* 13.6 gm/dL (13.5-17.5); Immature Granulocytes Pct Auto 0.2 %; Mean Corpuscular HGB Conc 34 gm/dL (32-36); Mean Corpuscular Hemoglobin 31 pg (26-34); Mean Corpuscular Volume 92 fL (80-100); RDW Coefficient of Variation % 11.7 % (11.5-15.5); Red Blood Count 4.39 m/uL (4.30-5.90); White Blood Count* 4.40 K/uL (4.50-11.00)
[2025-03-02 09:34] LABS: Immature Granulocytes Abs Auto 0.00 K/uL (0.00-0.30); Lymphocytes Absolute Auto 0.80 K/uL (0.90-2.90); Slide Review Reflex No
[2025-03-02 09:43] LABS: Troponin, Point-of-Care* 0.00 ng/ml (0.01-0.04)
[2025-03-02 09:47] LABS: Albumin* 4.1 g/dL (3.3-5.0); Chloride* 105 mmol/L (96-114); Potassium* 4.0 mmol/L (3.6-5.1); Sodium* 136 mmol/L (135-149)
[2025-03-02 09:50] LABS: Alanine Aminotransferase* 27 U/L (4-50); Alkaline Phosphatase* 41 U/L (40-150); Anion Gap 10 mEq/L (7-15); Aspartate Amino Transferase* 39 U/L (12-35); Bilirubin Direct* 0.0 mg/dL (0.0-0.5); Bilirubin Total* 1.0 mg/dL (0.1-1.5); Blood Urea Nitrogen* 17 mg/dL (7-30); Calcium* 9.0 mg/dL (8.4-10.6); Carbon Dioxide* 21 mmol/L (20-32); Creatinine* 0.9 mg/dL (0.5-1.5); Est. Creatinine Clearance* 59.91; Estimated Glomerular Filt Rate 97 ml/min; Glucose* 76 mg/dL (60-115); Total Protein* 6.6 g/dL (6.0-8.3)
[2025-03-02 10:02] LABS: D Dimer Quantitative* < 0.27 ug/ml (0.00-0.50)
[2025-03-02 10:03] LABS: NT Pro B Type NatriureticPept* 83 pg/mL (See Note)
[2025-03-02] MEDS: 0.9 % SODIUM CHLORIDE 500 ML 500 ML IV (10:23)
[2025-03-02 11:40] LABS: Troponin, Point-of-Care* 0.01 ng/ml (0.01-0.04)
== END 2025-03-02 12:11 | disposition home or self-care (01) ==
PROVIDERS: Emergency Provider Family Medicine
DX: R06.02 Shortness of breath (principal); E86.0 Dehydration; T67.5XXA Heat exhaustion, unspecified, initial encounter
CPT/HCPCS: 36415; 71045; 80048; 80076; 82150; 83605; 83880; 84484; 85025; 85379; 86140; 96374; 99284; 99285; J2060; J7030